=== PATIENT | male | born 1985 | race Caucasian/White ===

== ENCOUNTER 2017-05-16 10:15 | Day surgery (SDC) | payer OTHER ==
[2017-05-16 11:08] VITALS: BMI 29.4
[2017-05-16 13:08] VITALS: TEMP 97.6
[2017-05-16 13:52] VITALS: BP 122/74; PULSE 65
== END 2017-05-16 13:52 | disposition home or self-care (01) ==
LOC: JASU-ENDO 10:15
PROVIDERS: ATTEND Internal Medicine Gastroenterology
PROC: 0DJD8ZZ Inspection of Lower Intestinal Tract, Via Natural or Artificial Opening Endoscopic (ICD-10-PCS; principal; 2017-05-16 11:00)
DX: R19.4 Change in bowel habit (principal); Z80.0 Family history of malignant neoplasm of digestive organs